=== PATIENT | female | born 1980 | race Caucasian/White ===

== ENCOUNTER → 2019-05-23 | Outpatient (CLI) | payer OTHER | END | disposition home or self-care (01) | LOC: PRENATAL 10:00 | DX: O98.812 Other maternal infectious and parasitic diseases complicating pregnancy, second trimester (principal); O09.522 Supervision of elderly multigravida, second trimester ==

== ENCOUNTER → 2019-08-24 | Outpatient (CLI) | payer OTHER | END | disposition home or self-care (01) | LOC: PRENATAL 14:00 | DX: O26.843 Uterine size-date discrepancy, third trimester (principal); O24.410 Gestational diabetes mellitus in pregnancy, diet controlled; O09.523 Supervision of elderly multigravida, third trimester; O34.211 Maternal care for low transverse scar from previous cesarean delivery ==

== ENCOUNTER 2019-10-03 10:30 | Inpatient (IN) | payer OTHER ==
[~2019-10-03] VITALS: Ht 157.5 cm; Wt 3.6 kg
[2019-10-03] MEDS ORDERED: FOLIC ACID0.8 M1 PO (12:25)
[2019-10-06] MEDS ORDERED: PRENATAL TABLE1 EAC1 PO (02:33)
[2019-10-09] MEDS ORDERED: SIMETHICONE125 M1 PO (14:15)
[2019-10-09] MEDS ORDERED: DOCUSATE SODIU100 MG PO (14:15)
== END 2019-10-09 14:17 | disposition home or self-care (01) | DRG 788 ==
LOC: OB/GYN 10-06 06:22 → LDR 10-06 06:22 → O/R 10-06 08:16 → OB/GYN 10-06 09:13
PROVIDERS: Obstetrics & Gynecology; ADMIT Obstetrics & Gynecology
PROC: 4A1HXCZ Monitoring of Products of Conception, Cardiac Rate, External Approach (ICD-10-PCS; 2019-10-06)
PROC: 10D00Z1 Extraction of Products of Conception, Low, Open Approach (ICD-10-PCS; principal; 2019-10-06 07:00)
DX: O82 Encounter for cesarean delivery without indication (principal); Z3A.39 39 weeks gestation of pregnancy; Z37.0 Single live birth

== ENCOUNTER 2019-10-06 01:43 | Outpatient (CLI) | payer OTHER ==
[~2019-10-06 01:43] MED LIST: FOLIC ACID0.8 M1 PO
[2019-10-06] MEDS ORDERED: PRENATAL TABLE1 EAC1 PO (02:33)
== END 2019-10-06 06:00 | disposition still patient (30) ==
LOC: OBS/DEL 01:43
DX: O47.1 False labor at or after 37 completed weeks of gestation (principal); O35.8XX0 Maternal care for other (suspected) fetal abnormality and damage, not applicable or unspecified